=== PATIENT | female | born 1965 | race Two or more races ===

== ENCOUNTER 2020-01-18 12:18 | Inpatient (IN) | payer OTHER ==
[~2020-01-18] VITALS: Ht 160 cm; Wt 108.9 kg
[~2020-01-18 12:18] MED LIST: METFORMIN HCL500 MG
[2020-01-18] MEDS ORDERED: COZAAR50 MG PO (12:26)
== END 2020-01-24 19:21 | disposition home or self-care (01) | DRG 446 ==
LOC: ER 12:18 → SEC-K 19:34 → MEDI 19:34 → MEDJ 19:34 → MEDI 01-19 11:16
PROVIDERS: ADMIT Internal Medicine; ATTEND Internal Medicine
PROC: BW40ZZZ Ultrasonography of Abdomen (ICD-10-PCS; principal; 2020-01-18)
DX: K80.20 Calculus of gallbladder without cholecystitis without obstruction (principal); E11.9 Type 2 diabetes mellitus without complications; I10 Essential (primary) hypertension; E66.9 Obesity, unspecified; Z20.828 Contact with and (suspected) exposure to other viral communicable diseases

== ENCOUNTER → 2021-10-31 | Emergency (ER) | payer OTHER ==
[~2021-10-31] MED LIST changes: +COZAAR50 MG PO
== END | disposition left against medical advice (07) ==
LOC: ER 14:38
DX: Z53.21 Procedure and treatment not carried out due to patient leaving prior to being seen by health care provider (principal)

== ENCOUNTER 2022-10-30 10:47 | Inpatient (IN) | payer OTHER ==
[~2022-10-30] VITALS: Ht 160 cm; Wt 106.1 kg
[2022-11-06] MEDS ORDERED: FLONASE16 GM (15:06)
== END 2022-11-11 18:33 | disposition home or self-care (01) | DRG 409 ==
LOC: ER 10:47 → MEDI 19:42 → SEC-K 19:42 → MEDI 22:31
PROVIDERS: Internal Medicine Gastroenterology; ADMIT Specialist; ATTEND Specialist
PROC: BW21YZZ Computerized Tomography (CT Scan) of Abdomen and Pelvis using Other Contrast (ICD-10-PCS; 2022-10-30)
PROC: BF37ZZZ Magnetic Resonance Imaging (MRI) of Pancreas (ICD-10-PCS; 2022-10-31)
PROC: 0FC48ZZ Extirpation of Matter from Gallbladder, Via Natural or Artificial Opening Endoscopic (ICD-10-PCS; principal; 2022-11-05 14:00)
PROC: 0FT44ZZ Resection of Gallbladder, Percutaneous Endoscopic Approach (ICD-10-PCS; 2022-11-08)
PROC: 0WQF4ZZ Repair Abdominal Wall, Percutaneous Endoscopic Approach (ICD-10-PCS; 2022-11-08)
DX: K80.42 Calculus of bile duct with acute cholecystitis without obstruction (principal); N17.9 Acute kidney failure, unspecified; K43.9 Ventral hernia without obstruction or gangrene; E87.6 Hypokalemia; K74.69 Other cirrhosis of liver; E66.01 Morbid (severe) obesity due to excess calories; I10 Essential (primary) hypertension; E11.9 Type 2 diabetes mellitus without complications; Z20.822 Contact with and (suspected) exposure to COVID-19; Z74.01 Bed confinement status; Z79.4 Long term (current) use of insulin

== ENCOUNTER 2023-05-18 08:11 | Emergency (ER) | payer OTHER ==
[~2023-05-18] VITALS: Ht 167.6 cm; Wt 108.9 kg
[~2023-05-18 08:11] MED LIST changes: +FLONASE16 GM
[2023-05-18 10:09] LABS: PH,URINE 5.5 (5.0-8.0); URINE APPEARANCE Cloudy; URINE BILIRRUBIN Negative (NEGATIVE); URINE BLOOD Moderate; URINE COLOR Yellow; URINE LEUKOCYTE Negative; URINE NITRATE Negative; URINE PROTEIN Trace (NEGATIVE)
[2023-05-18 10:11] LABS: HEMATOCRIT 42.8 % (36.0-45.00); HEMOGLOBIN 14.5 g/dL (12.0-15.00); MEAN CELL VOLUME 85.7 fL (80.00-100.00); MEAN CORPUSCULAR HGB CONC 33.8 g/dl (32.0-36.0); PLATELET COUNT 191 K/uL (150-450); RED CELL DISTRIBUTION WIDTH 13.4 % (11.5-14.5)
[2023-05-18 10:13] LABS: URINE EPITHELIAL CELLS 84.5 uL (0.0-38.8); URINE RBC 120.2 uL (0.0-20.8); URINE WBC 76.8 uL (0.0-23.2)
[2023-05-18 10:28] LABS: CALCIUM 8.9 mg/dL (8.5-10.1); CREATININE SERUM 0.76 mg/dL (0.55-1.02); GFR 79.01; POTASSIUM 3.74 mEq/L (3.5-5.1)
[2023-05-18 10:41] LABS: URINE GLUCOSE >=1000 MG/DL (NEGATIVE); URINE YEAST MODERATE /hpf
== END 2023-05-18 13:02 | disposition home or self-care (01) ==
LOC: ER 08:12
PROVIDERS: General Practice
DX: L02.31 Cutaneous abscess of buttock (principal); Z88.8 Allergy status to other drugs, medicaments and biological substances

== ENCOUNTER 2023-05-23 10:22 | Inpatient (IN) | payer OTHER ==
[~2023-05-23] VITALS: Ht 160 cm; Wt 103.4 kg
[2023-05-23 13:11] LABS: HEMATOCRIT 38.5 % (36.0-45.00); HEMOGLOBIN 13.1 g/dL (12.0-15.00); MEAN CELL VOLUME 84.9 fL (80.00-100.00); MEAN CORPUSCULAR HGB CONC 34.2 g/dl (32.0-36.0); PLATELET COUNT 234 K/uL (150-450); RED BLOOD COUNT 4.54 M/uL (4.00-6.00)
[2023-05-23 13:15] LABS: CALCIUM 8.2 mg/dL (8.5-10.1); CREATININE SERUM 0.83 mg/dL (0.55-1.02); GFR 71.37; POTASSIUM 3.72 mEq/L (3.5-5.1)
[2023-05-23 14:13] LABS: URINE APPEARANCE Cloudy; URINE BILIRRUBIN Small (NEGATIVE); URINE BLOOD Small; URINE COLOR Dark Yellow; URINE LEUKOCYTE Trace; URINE NITRATE Negative; URINE PROTEIN Trace (NEGATIVE)
[2023-05-23 14:17] LABS: URINE BACTERIA 137.3 uL (0.0-1933); URINE EPITHELIAL CELLS 168.8 uL (0.0-38.8); URINE RBC 89.3 uL (0.0-20.8); URINE WBC 14.2 uL (0.0-23.2)
[2023-05-23 14:48] LABS: URINE GLUCOSE >=1000 MG/DL (NEGATIVE); URINE YEAST FEW /hpf
[2023-05-24 08:46] LABS: PH,URINE 6.5 (5.0-8.0); URINE APPEARANCE Cloudy; URINE BILIRRUBIN Small (NEGATIVE); URINE BLOOD Large; URINE COLOR Dark Yellow; URINE GLUCOSE Negative (NEGATIVE); URINE LEUKOCYTE Trace; URINE NITRATE Negative; URINE PROTEIN Trace (NEGATIVE)
[2023-05-24 09:14] LABS: INR 1.36; PARTIAL THROMBOPLASTIN TIME 28.6 SECONDS (22.0-34.0)
[2023-05-24 09:25] LABS: ALBUMIN 1.6 gm/dL (3.4-5.0); BILIRUBIN TOTAL 1.26 mg/dL (0.3-1.2); BILIRUBIN,CONJUGATED 0.95 mg/dL (0.0-0.2); BILIRUBIN,UNCONJUGATED 0.31 mg/dL (0.0-0.6); CALCIUM 7.7 mg/dL (8.5-10.1); CREATININE SERUM 0.54 mg/dL (0.55-1.02); GFR 117.21; GLOBULINA 4.4 G/DL (2.4-3.5); POTASSIUM 3.83 mEq/L (3.5-5.1)
[2023-05-24 09:28] LABS: C-REACTIVE PROTEIN 16.8 MG/DL (0.00-0.29); CHOL HDL RATIO 18.3 (0-5.0)
[2023-05-24 09:31] LABS: URINE EPITHELIAL CELLS 127.2 uL (0.0-38.8); URINE RBC 364.3 uL (0.0-20.8); URINE WBC 16.5 uL (0.0-23.2)
[2023-05-24 09:32] LABS: HEMOGLOBIN 12.3 g/dL (12.0-15.00); MEAN CELL VOLUME 83.4 fL (80.00-100.00); MEAN CORPUSCULAR HEMOGLOBIN 28.5 pg (27.00-32.0); MEAN CORPUSCULAR HGB CONC 34.2 g/dl (32.0-36.0); PLATELET COUNT 264 K/uL (150-450); RED BLOOD COUNT 4.31 M/uL (4.00-6.00); RED CELL DISTRIBUTION WIDTH 13.1 % (11.5-14.5)
[2023-05-24 10:06] LABS: URINE YEAST MODERATE /hpf
[2023-05-24 12:19] LABS: ERYTHROCYTE SEDIMENTATION RATE 104 mm/hr
[2023-05-27 07:14] LABS: HEMATOCRIT 32.7 % (36.0-45.00); HEMOGLOBIN 11.2 g/dL (12.0-15.00); MEAN CORPUSCULAR HEMOGLOBIN 28.9 pg (27.00-32.0); MEAN CORPUSCULAR HGB CONC 34.3 g/dl (32.0-36.0); PLATELET COUNT 200 K/uL (150-450); RED BLOOD COUNT 3.89 M/uL (4.00-6.00); RED CELL DISTRIBUTION WIDTH 13.7 % (11.5-14.5)
[2023-05-27 08:02] LABS: ALBUMIN 1.3 gm/dL (3.4-5.0); BILIRUBIN TOTAL 0.71 mg/dL (0.3-1.2); CALCIUM 6.8 mg/dL (8.5-10.1); CREATININE SERUM 0.48 mg/dL (0.55-1.02); GFR 134.27; GLOBULINA 4.6 G/DL (2.4-3.5); POTASSIUM 3.5 mEq/L (3.5-5.1); TOTAL PROTEIN 5.9 gm/dL (6.4-8.2)
[2023-05-29 13:05] LABS: CALCIUM 7.6 mg/dL (8.5-10.1); CREATININE SERUM 0.49 mg/dL (0.55-1.02); GFR 131.12; POTASSIUM 4.02 mEq/L (3.5-5.1)
[2023-05-29 13:07] LABS: TSH 5.55 uIU/mL (0.358-3.74)
[2023-05-30 06:40] LABS: HEMOGLOBIN 11.3 g/dL (12.0-15.00); MEAN CORPUSCULAR HEMOGLOBIN 28.7 pg (27.00-32.0); MEAN CORPUSCULAR HGB CONC 34.2 g/dl (32.0-36.0); PLATELET COUNT 233 K/uL (150-450); RED BLOOD COUNT 3.93 M/uL (4.00-6.00); RED CELL DISTRIBUTION WIDTH 13.6 % (11.5-14.5)
[2023-05-30 07:04] LABS: ALBUMIN 1.4 gm/dL (3.4-5.0); BILIRUBIN TOTAL 0.55 mg/dL (0.3-1.2); CALCIUM 7.8 mg/dL (8.5-10.1); CREATININE SERUM 0.47 mg/dL (0.55-1.02); GFR 137.57; GLOBULINA 5.1 G/DL (2.4-3.5); POTASSIUM 3.84 mEq/L (3.5-5.1); TOTAL PROTEIN 6.5 gm/dL (6.4-8.2)
[2023-05-30 18:06] LABS: alpha I 251 mg/dL (101-187)
[2023-06-02 05:43] LABS: HEMATOCRIT 33.9 % (36.0-45.00); HEMOGLOBIN 11.5 g/dL (12.0-15.00); MEAN CELL VOLUME 85.4 fL (80.00-100.00); PLATELET COUNT 233 K/uL (150-450); RED BLOOD COUNT 3.97 M/uL (4.00-6.00); RED CELL DISTRIBUTION WIDTH 13.3 % (11.5-14.5)
[2023-06-02 06:16] LABS: ALBUMIN 1.7 gm/dL (3.4-5.0); BILIRUBIN TOTAL 0.54 mg/dL (0.3-1.2); CALCIUM 7.8 mg/dL (8.5-10.1); CREATININE SERUM 0.46 mg/dL (0.55-1.02); GFR 141.03; GLOBULINA 5.1 G/DL (2.4-3.5); POTASSIUM 4.05 mEq/L (3.5-5.1); T4 TOTAL 9.71 UG/DL (4.8-13.9); TOTAL PROTEIN 6.8 gm/dL (6.4-8.2); TSH 4.94 uIU/mL (0.358-3.74)
== END 2023-06-03 19:12 | disposition home or self-care (01) | DRG 580 ==
LOC: ER 10:23 → MEDJ 18:10
PROVIDERS: General Practice; Internal Medicine Endocrinology, Diabetes & Metabolism; Surgery; ADMIT Specialist; ATTEND Specialist
PROC: BW21YZZ Computerized Tomography (CT Scan) of Abdomen and Pelvis using Other Contrast (ICD-10-PCS; 2023-05-23)
PROC: 0J990ZZ Drainage of Buttock Subcutaneous Tissue and Fascia, Open Approach (ICD-10-PCS; 2023-05-24)
PROC: 0JD90ZZ Extraction of Buttock Subcutaneous Tissue and Fascia, Open Approach (ICD-10-PCS; principal; 2023-05-24 10:00)
DX: L02.31 Cutaneous abscess of buttock (principal); E11.52 Type 2 diabetes mellitus with diabetic peripheral angiopathy with gangrene; E87.1 Hypo-osmolality and hyponatremia; I96 Gangrene, not elsewhere classified; L98.413 Non-pressure chronic ulcer of buttock with necrosis of muscle; L03.317 Cellulitis of buttock; E11.65 Type 2 diabetes mellitus with hyperglycemia; Z79.4 Long term (current) use of insulin; E66.01 Morbid (severe) obesity due to excess calories; E86.0 Dehydration; K74.60 Unspecified cirrhosis of liver; M72.2 Plantar fascial fibromatosis

== ENCOUNTER 2024-11-06 10:08 | Emergency (ER) | payer OTHER ==
[~2024-11-06] VITALS: Ht 160 cm; Wt 110.2 kg
[2024-11-06] MEDS ORDERED: ORPHENADRINE CITRATE 30 MG/ML AMPUL IM STA (15:46)
[2024-11-06] MEDS ORDERED: KETOROLAC TROMETHAMINE 15 MG VIAL IM STA (15:46)
[2024-11-06] MEDS ORDERED: FAMOtidine 40 MG TABLET PO STA (15:46)
[2024-11-06] MEDS ORDERED: KETOROLAC TROMETHAMINE 30 MG VIAL ONE (15:53)
[2024-11-06] MEDS ORDERED: ORPHENADRINE CITRATE 30 MG/ML AMPUL ONE (15:54)
[2024-11-06 16:19] LABS: BASO % 0.2 % (0.1-1.2); EOS # 0.03 (0.04-0.54); EOS % 0.2 % (0.7-7.0); HEMOGLOBIN 13.4 g/dL (11.2-15.7); LYMPH # 1.79 (1.18-3.74); LYMPH % 13.7 % (19.3-53.1); MONO # 0.93 (0.24-0.82); MONO % 7.1 % (4.7-12.5); NEUT # 10.18 (1.56-6.13); NEUT % 78.3 % (34.0-71.1); PLATELET COUNT 165 K/uL (163-369); RED BLOOD COUNT 4.79 M/uL (3.93-5.22); RED CELL DISTRIBUTION WIDTH 12.5 % (11.6-14.4)
[2024-11-06 16:31] LABS: PH,URINE 5.5 (5.0-8.0); URINE APPEARANCE Cloudy; URINE BILIRRUBIN Small (NEGATIVE); URINE BLOOD Moderate; URINE COLOR Orange; URINE KETONE Trace (NEGATIVE); URINE LEUKOCYTE Small; URINE NITRATE Positive; URINE PROTEIN 30 (NEGATIVE)
[2024-11-06 16:35] LABS: URINE BACTERIA 2119.8 uL (0.0-1933); URINE EPITHELIAL CELLS 107.6 uL (0.0-38.8); URINE RBC 118.4 uL (0.0-20.8); URINE WBC 67.7 uL (0.0-23.2)
[2024-11-06 16:59] LABS: ALBUMIN 2.4 gm/dL (3.4-5.0); BILIRUBIN TOTAL 1.93 mg/dL (0.3-1.2); CALCIUM 8.1 mg/dL (8.5-10.1); CREATININE SERUM 0.91 mg/dL (0.55-1.02); GFR 63.72; GLOBULINA 5.5 G/DL (2.4-3.5); POTASSIUM 4.27 mEq/L (3.5-5.1); TOTAL PROTEIN 7.9 gm/dL (6.4-8.2)
[2024-11-06 17:11] LABS: COVID-19 AG NEGATIVE (NEGATIVE); INFLUENZA A AG NEGATIVE (NEGATIVE); INFLUENZA B AG NEGATIVE (NEGATIVE)
[2024-11-06 17:12] LABS: URINE GLUCOSE >=1000 MG/DL (NEGATIVE)
[2024-11-06 17:16] LABS: URINE YEAST MODERATE /hpf
[2024-11-06] MEDS ORDERED: CEFTRIAXONE SODIUM 2,000 MG VIAL IV STA (17:30)
[2024-11-06] MEDS ORDERED: CEFTRIAXONE SODIUM 2,000 MG VIAL ONE (17:42)
[2024-11-06] MEDS ORDERED: NITROFURANTOIN100 MG PO (18:39)
[2024-11-06] MEDS ORDERED: PEPCID AC20 MG PO (18:39)
[2024-11-06] MEDS ORDERED: NORFLEX100MG PO (18:39)
== END 2024-11-06 19:42 | disposition home or self-care (01) ==
LOC: ER 10:08
DX: N39.0 Urinary tract infection, site not specified (principal); M62.838 Other muscle spasm; Z20.822 Contact with and (suspected) exposure to COVID-19; I10 Essential (primary) hypertension; E11.9 Type 2 diabetes mellitus without complications; Z79.84 Long term (current) use of oral hypoglycemic drugs; Z88.1 Allergy status to other antibiotic agents; Z88.8 Allergy status to other drugs, medicaments and biological substances